=== PATIENT | female | born 1930 | race Caucasian/White ===

== ENCOUNTER → 2016-12-05 | Outpatient (CLI) | payer OTHER ==
[~2016-12-05] MED LIST: ANTIVERT25 MG PO; ASPIR 8181 M1 PO; ATIVAN1 MG PO; COMPAZINE10 MG PO; LIDOCAINE-HC 2100 GM TOP; NIACIN50 MG PO; NORCO 5-325 TA1 EACH PO; PREDNISONE 20 M20 MG PO; PROVENTIL HFA6.7 G1 INH; TESSALON PERLE100 MG PO; TUMS PO; ZPAK PO
== END ==
LOC: ULTRA 12:50
DX: G45.9 Transient cerebral ischemic attack, unspecified (principal); N95.9 Unspecified menopausal and perimenopausal disorder; N91.2 Amenorrhea, unspecified